=== PATIENT | male | born 1960 | race Caucasian/White ===

== ENCOUNTER 2016-12-06 08:17 | Emergency (ER) | payer OTHER ==
--- NOTE | 2016-12-06 08:25 | EDM.PDOC ---
ED HPI GENERAL MEDICAL PROBLEM - General Chief Complaint: Upper Extremity Injury/Pain Stated Complaint: [id number] MESSED UP COLLAR BONE FELL AT CAMPER Time Seen by Provider: 12/06/16 08:25 Source of Information: Reports: Patient, Family (), RN, RN Notes Reviewed History Limitations: Reports: No Limitations - History of Present Illness INITIAL COMMENTS - FREE TEXT/NARRATIVE: Arrives by POV with c/o right shoulder pain sustained last evening when pt missed a step and fell coming out of his camper. Denies radiating pain, numbness , tingling, or motor weakness to the RUE. Pt feels that his collar bone could be broken. Denies head injury, LOC, neck pain, or any other injury(s). Rates the pain 4/10 at rest and 7/10 with movement. Pain is worse with ROM of the Rt shoulder. Pain is better with Rt shoulder immobilized and at rest. Onset: Sudden Onset Date: 12/05/16 Duration: Constant Location: Reports: Upper Extremity, Right Quality: Reports: Ache Severity: Moderate Improves with: Reports: Immobilization Worsens with: Reports: Movement Context: Reports: Other (fall) Right Shoulder Pain Score (Numeric/FACES): 7 - Related Data Allergies Allergy/AdvReac Type Severity Reaction Status Date / Time No Known Allergies Allergy Verified 12/06/16 09:42 Home Meds: Home Meds . [Unable to Verify Home Med List] 12/06/16 [History] Past Medical History Cardiovascular History: Reports: High Cholesterol, Hypertension Social & Family History - Tobacco Use Smoking Status *Q: Never Smoker - Alcohol Use Alcohol Use History: Yes Alcohol Use Frequency: Rarely - Recreational Drug Use Recreational Drug Use: No - Living Situation & Occupation Living situation: Reports: , with Spouse Occupation: Employed Review of Systems - Review of Systems Review Of Systems: ROS reveals no pertinent complaints other than HPI. ED EXAM, GENERAL - Physical Exam Exam: See Below Exam Limited By: No Limitations General Appearance: Alert, WD/WN, No Apparent Distress Throat/Mouth: Normal Inspection Head: Atraumatic, Normocephalic Neck: Normal Inspection, Non-Tender, Full Range of Motion Respiratory/Chest: No Respiratory Distress Cardiovascular: Normal Peripheral Pulses Peripheral Pulses: 3+: Radial (L), Radial (R) Back Exam: Normal Inspection Extremities: Normal Capillary Refill (B/L upper extremities), Limited Range of Motion (Rt shoulder with elevation of the distal clavicle compared to the left, no visible swelling, no visible bruising, or erythema, skin is intact) Neurological: Alert, Oriented, CN II-XII Intact, Normal Cognition, Normal Gait, Normal Reflexes, No Motor/Sensory Deficits Psychiatric: Normal Affect, Normal Mood Skin Exam: Warm, Dry, Intact, Normal Color, No Rash Course - Vital Signs Last Recorded V/S: Last Vital Signs Temp 36.6 C 12/06/16 08:20 Pulse 88 12/06/16 08:20 Resp 18 12/06/16 08:20 BP 137/87 12/06/16 08:20 Pulse Ox 97 12/06/16 08:20 - Orders/Labs/Meds Orders: Active Orders 24 hr Category Date Time Status Clavicle Rt [CR] Urgent Exams 12/06/16 08:33 Taken DME for Discharge [COMM] Routine Oth 12/06/16 09:32 Ordered Meds: Medications Discontinued Medications Generic Name Dose Route Start Last Admin Trade Name Lore PRN Reason Stop Dose Admin Hydrocodone Bitart/Acetaminophen 1 tab 12/06/16 09:32 Delia 325-10 Mg PO 12/06/16 09:33 ONETIME ONE - Radiology Interpretation Free Text/Narrative:: Xray Rt clavicle: No fracture, poss. AC joint separation, see Rad. report. Departure - Departure Time of Disposition: 09:59 Disposition: Home, Self-Care 01 Condition: Good Clinical Impression: Acromioclavicular joint separation Qualifiers: Encounter type: initial encounter Laterality: right Qualified Code(s): S43.101A - Unspecified dislocation of right acromioclavicular joint, initial encounter - Discharge Information Instructions: Acromioclavicular Separation With [facility] Forms: ED Department Discharge Additional Instructions: Wear sling as instructed for 5 to 7 days, may remove to sleep and shower. Ice pack to area of pain as needed. Rx: Delia 5mg/325mg Follow up with orthopedic surgeon next week for recheck. - My Orders Last 24 Hours: My Active Orders 12/06/16 08:33 Clavicle Rt [CR] Urgent 12/06/16 09:32 DME for Discharge [COMM] Routine - Assessment/Plan Last 24 Hours: My Active Orders 12/06/16 08:33 Clavicle Rt [CR] Urgent 12/06/16 09:32 DME for Discharge [COMM] Routine
[2016-12-06] MEDS ORDERED: Acetaminophen/HYDROcodone 325-10 MG Tab PO ONE (09:32)
[2016-12-06 09:42] VITALS: BP 137/87
== END 2016-12-06 10:04 | disposition home or self-care (01) ==
LOC: DL.ED 08:17
DX: S43.101A Unspecified dislocation of right acromioclavicular joint, initial encounter (principal); I10 Essential (primary) hypertension; E78.00 Pure hypercholesterolemia, unspecified; W10.8XXA Fall (on) (from) other stairs and steps, initial encounter
CPT/HCPCS: 73000; 99283; A9270